=== PATIENT | female | born 1960 ===

== ENCOUNTER 2017-05-26 18:02 | Emergency (ER) | payer MEDICAID ==
[2017-05-26 18:21] VITALS: BP 123/80; PULSE 81; RESP 18; TEMP 98.1; O2SAT 99
--- NOTE | 2017-05-26 20:00 | C.PDOC ---
History Of Present Illness Patient left without being seen. Chief Complaint (Nursing): GI Problem Past Medical History Vital Signs: Last Vital Signs Temp 98.1 F 05/26/17 18:14 Pulse 81 05/26/17 18:14 Resp 18 05/26/17 18:14 BP 123/80 05/26/17 18:14 Pulse Ox 99 05/27/17 00:56 - Medical History PMH: HTN Surgical History: No Surg Hx Family History: States: Unknown Family Hx - Social History Hx Alcohol Use: No Hx Substance Use: No - Immunization History Hx Tetanus Toxoid Vaccination: No Hx Influenza Vaccination: No Hx Pneumococcal Vaccination: No ED Course And Treatment O2 Sat by Pulse Oximetry: 99 Disposition - Disposition Disposition: LEFT W/O BEING SEEN - ER ONLY Disposition Time: 19:15 Condition: UNKNOWN Forms: [facility] ([place]) - Clinical Impression Clinical Impression: Rectal bleed
== END 2017-05-26 19:15 | disposition left against medical advice (07) ==
LOC: C.ER 18:02
DX: K62.5 Hemorrhage of anus and rectum (principal); Z02.9 Encounter for administrative examinations, unspecified